=== PATIENT | male | born 1975 | race Caucasian/White ===

== ENCOUNTER 2019-11-16 01:45 | Emergency (ER) | payer SELFPAY ==
[2019-11-16 01:50] VITALS: BP 151/99; PULSE 71; RESP 18; TEMP 36.5; O2SAT 98; BMI 28.5
--- NOTE | 2019-11-16 02:00 | XR_ITS ---
WS: [id number] PORTABLE CHEST HISTORY: Chest pain. COMPARISON: 05/26/2011 Lungs are clear and well expanded. No pleural effusion or pneumothorax. Cardiac size: Normal. Mediastinum/Aorta: Normal mediastinum. No osseous abnormality seen. XR/XR chest 1V portable [id number] IMPRESSION: Unremarkable portable chest.
--- NOTE | 2019-11-16 02:00 | ECG_ITS ---
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 Measurements Intervals [place] Rate: 70 P: 51 DE: 190 QRS: 8 QRSD: 95 T: 45 QT: 386 QTc: 417 Interpretive Statements SINUS RHYTHM MINIMAL VOLTAGE CRITERIA FOR LVH, CONSIDER NORMAL VARIANT [MEETS CRITERIA IN ONE OF: R(aVL), S(V1), R(V5), R(V5/V6)+S(V1)] No previous ECG available for comparison Electronically Signed On 11-17-2019 0:13:35 CDT by Jl Singh M.D. [email or web address]/store/NU/[id number] john
[2019-11-16 02:14] VITALS: BP 144/99; PULSE 67; RESP 20; O2SAT 96
[2019-11-16 02:18] LABS: Basophils # 0.1 10^3/uL (0.0-0.1); Basophils % 0.7 %; Eosinophils # 0.3 10^3/uL (0.0-0.8); Eosinophils % 3.4 %; Hematocrit 47.7 % (42.0-52.0); Hemoglobin 16.7 g/dL (11.7-16.6); Lymphocytes # 3.5 10^3/uL (0.8-4.8); Mean Corpuscular Hemoglobin 31.7 pg (28.0-34.0); Mean Corpuscular Volume 90.5 fL (80-94); Mean Platelet Volume 9.9 fL (7.4-10.4); Monocytes # 0.7 10^3/uL (0.2-0.9); Monocytes % 6.9 %; Neutrophils # 5.42 10^3/uL (1.8-7.7); Neutrophils % 53.9 %; Nucleated Red Blood Cells % 0 %; Platelet Count 300 10^3/cmm (130-400); Red Blood Count 5.27 10^6/uL (4.1-5.3)
[2019-11-16 02:31] LABS: D Dimer <= 0.27 ug/mIFEU (0-0.59)
[2019-11-16 02:36] LABS: Troponin(5th) Baseline 6 ng/L (0-15)
[2019-11-16] MEDS: ondansetron 2 mg/ML SDV 2 mL 4 MG IVP (02:41)
--- NOTE | 2019-11-16 02:46 | ED_ITS ---
HPI - Chest Pain General: Chief Complaint: Chest Pain Stated Complaint: thinks hes having a heart attack Time Seen by Provider: 11/16/19 02:01 History of Present Illness: HPI narrative: 44-year-old male that awoke with left upper chest, left arm and left neck pressure and pain. He had some shortness of breath. It seemed to resolve on its own. He has some nausea as well, that has not resolved. He has a history of panic disorder, but this feels much different. No prior history of coronary disease etc. MD complaint: chest pain Onset (ago): hour(s) Timing of current episode: constant and now resolved Prior episodes: No Onset: during rest and awoke with symptoms Pain location: left chest Pain radiation: left arm and neck Severity: severe Quality: heaviness Relieving factors: nothing Exacerbating factors: nothing Associated symptoms: Reports abdominal pain (Cramping), dyspnea and nausea; Deny fever(s), palpitations or vomiting Review of Systems Const: Denies: fever(s) Eyes: Denies: change in vision or blurry vision ENMT: Denies: swelling of lips/tongue, post nasal drip or sinus pain Card: Denies: palpitations Resp: Reports: dyspnea GI: Reports: abdominal pain (Cramping) and nausea; Denies: vomiting : Denies: difficulty urinating, urinary frequency or hematuria Musc: Reports: neck pain; Denies: back pain Skin/Breast: Denies: rash or erythema Neuro: Denies: headache(s), dizziness, vertigo or confusion Psych: Denies: anxiety Physical Exam Const: GENERAL APPEARANCE: well developed ORIENTATION/CONSCIOUSNESS: Yes oriented to person, Yes oriented to place and Yes oriented to time HENMT: COMMON NORMALS: normocephalic, external ears normal and Normal external nose present HEAD & SCALP: normocephalic FACE & SINUS: normal facial exam NOSE: Normal external nose present and No nasal discharge present EXTERNAL EAR: Yes external ears normal Eye: COMMON NORMALS: Equal, round and reactive pupils present, EOMs intact bilaterally and conjunctivae normal EYELID: eyelids normal CONJUNCTIVA: Yes conjunctivae normal PUPIL: Yes Equal, round and reactive pupils present Neck/C-Spine: COMMON NORMALS: full ROM GENERAL: No tracheal deviation CERVICAL SPINE: Yes normal cervical lordosis and No Cervical spine tenderness Chest: COMMONS NORMALS: normal inspection of the chest CHEST: No tenderness Resp: COMMON NORMALS: clear to auscultation bilaterally EFFORT & INSPECTION: No tachypneic, No respiratory distress, No retractions, No uses accessory muscles and No tracheal deviation AUSCULTATION: clear to auscultation bilaterally, no rhonchi, no wheezes and lung sounds not diminished Cardio: COMMON NORMALS: regular rate and regular rhythm RATE: regular rate RHYTHM: regular rhythm HEART SOUNDS: no murmurs PERIPHERAL PULSES: ra dial pulses present GI: INSPECTION: No abdominal distension AUSCULTATION: No Hyperactive bowel sounds present and No Hypoactive bowel sounds present PALPATION: No Guarding due to palpation present (GI) and No Rigid due to palpation PERCUSSION: no dullness to percussion and no tympanic to percussion Neuro: SENSORIUM/ORIENTATION: Yes oriented to person, Yes oriented to place and Yes oriented to time Psych: COMMON NORMALS: mental status grossly normal Skin: COMMON NORMALS: no rashes or lesions noted GENERAL SKIN EXAM: no rashes or lesions noted Course Vital Signs: Vital signs: Vital Signs Temperature 97.7 F 11/16/19 01:50 Pulse Rate 64 11/16/19 04:00 Respiratory Rate 16 11/16/19 04:00 Blood Pressure 153/87 11/16/19 04:00 Pulse Oximetry 97 11/16/19 04:00 MDM - Chest Pain MDM Narrative: Medical decision making narrative: 44-year-old male with atypical type chest pain. Pain is essentially resolved now. He was rather anxious. This improved after some Ativan. EKG shows a sinus rhythm with essentially no acute ST changes. This is x2. Chest x-ray is negative. Troponin did not elevate at 2 hours. He will be discharged to follow-up from home. Lab Data: Labs: Lab Results 11/16/19 11/16/19 11/16/19 Range/Units 02:07 02:07 02:07 WBC 10.0 (4.0-10.0) 10^3/ uL RBC 5.27 (4.1-5.3) 10^6/u L Hgb 16.7 H (11.7-16.6) g/dL Hct 47.7 (42.0-52.0) % MCV 90.5 (80-94) fL MCH 31.7 (28.0-34.0) pg MCHC 35.0 (30.0-36.0) g/dL RDW 12.0 L (12.1-15.1) % Plt Count 300 (130-400) 10^3/c mm MPV 9.9 (7.4-10.4) fL Neut % (Auto) 53.9 % Lymph % (Auto) 35.0 % [place] % (Auto) 6.9 % Eos % (Auto) 3.4 % Baso % (Auto) 0.7 % Neut # (Auto) 5.42 (1.8-7.7) 10^3/u L Lymph # (Auto) 3.5 (0.8-4.8) 10^3/u L [place] # (Auto) 0.7 (0.2-0.9) 10^3/u L Eos # (Auto) 0.3 (0.0-0.8) 10^3/u L Baso # (Auto) 0.1 (0.0-0.1) 10^3/u L Nucleated RBC % (a uto) 0 % Nucleated RBCs # 0.0 /100WBC D-Dimer <= 0.27 (0-0.59) ug/mIFE U Sodium 140 (136-145) mmol/L Potassium 3.9 (3.5-5.1) mmol/L Chloride 101 (98-107) mmol/L Carbon Dioxide 29 (22-29) mmol/L Anion Gap 13.9 (5-19) BUN 14 (6-20) mg/dL Creatinine 1.4 H (0.7-1.2) mg/dL GFR Calculation 55.1 L (90-130) mL/min Glucose 106 (65-115) mg/dL Calculated Osmolal ity 287 (285-295) mOsm/k g Calcium 9.7 (8.5-10.5) mg/dL Total Bilirubin 0.4 (0.15-1.2) mg/dL AST 5 (0-40) U/L ALT 56 H (0-41) U/L Alkaline Phosphata se 99 (40-130) IU/L Troponin T Baselin e (0-15) ng/L Troponin T 120 Min mohegan (0-15) ng/L Delta Troponin T (0-10) ABS# NT-Pro-B Natriuret Pep 30 (0-125) pg/mL Total Protein 7.1 (6.6-8.7) g/dL Albumin 4.6 (3.5-5.2) g/dL Globulin 2.5 (1.3-4.6) g/dL 11/16/19 11/16/19 Range/Units 02:07 04:17 WBC (4.0-10.0) 10^3/ uL RBC (4.1-5.3) 10^6/u L Hgb (11.7-16.6) g/dL Hct (42.0-52.0) % MCV (80-94) fL MCH (28.0-34.0) pg MCHC (30.0-36.0) g/dL RDW (12.1-15.1) % Plt Count (130-400) 10^3/c mm MPV (7.4-10.4) fL Neut % (Auto) % Lymph % (Auto) % [place] % (Auto) % Eos % (Auto) % Baso % (Auto) % Neut # (Auto) (1.8-7.7) 10^3/u L Lymph # (Auto) (0.8-4.8) 10^3/u L [place] # (Auto) (0.2-0.9) 10^3/u L Eos # (Auto) (0.0-0.8) 10^3/u L Baso # (Auto) (0.0-0.1) 10^3/u L Nucleated RBC % (a uto) % Nucleated RBCs # /100WBC D-Dimer (0-0.59) ug/mIFE U Sodium (136-145) mmol/L Potassium (3.5-5.1) mmol/L Chloride (98-107) mmol/L Carbon Dioxide (22-29) mmol/L Anion Gap (5-19) BUN (6-20) mg/dL Creatinine (0.7-1.2) mg/dL GFR Calculation (90-130) mL/min Glucose (65-115) mg/dL Calculated Osmolal ity (285-295) mOsm/k g Calcium (8.5-10.5) mg/dL Total Bilirubin (0.15-1.2) mg/dL AST (0-40) U/L ALT (0-41) U/L Alkaline Phosphata se (40-130) IU/L Troponin T Baselin e 6 (0-15) ng/L Troponin T 120 Min mohegan 7.19 (0-15) ng/L Delta Troponin T 1.19 (0-10) ABS# NT-Pro-B Natriuret Pep (0-125) pg/mL Total Protein (6.6-8.7) g/dL Albumin (3.5-5.2) g/dL Globulin (1.3-4.6) g/dL Discharge Plan Discharge Patient Disposition: Home Clinical Impression: Chest pain Qualifiers: Chest pain type: unspecified Qualified Code(s): R07.9 - Chest pain, unspecified Condition: Stable Prescriptions: New Ativan 1 mg tablet 1 mg PO Q8H PRN (Reason: anxiety) Qty: 7 RF: 0 Discharge Orders: Discharge Order (Routine); Ordered 11/16/19 Ordered By: Chet Mata Discharge Diet: Advance as tolerated Discharge Activity: Increase activity as tolerated Patient Instructions: Chest Pain (ED) Activity Restrictions/Additional Instructions: Return for return of chest pain, shortness of breath, fever greater than 100, cough, sputum production, other concerning symptoms. See your doctor, as outpatient tests may be needed. Coding Level of Care Code ED Director Of Sustainability Programs for Zoe Fwd Exam Comprehensive
[2019-11-16 02:51] LABS: Albumin Level 4.6 g/dL (3.5-5.2); Alkaline Phosphatase 99 IU/L (40-130); Blood Urea Nitrogen 14 mg/dL (6-20); Calcium 9.7 mg/dL (8.5-10.5); Carbon Dioxide 29 mmol/L (22-29); Chloride 101 mmol/L (98-107); Globulin 2.5 g/dL (1.3-4.6); Glomerular Filtration Rate 55.1 mL/min (90-130); Glucose 106 mg/dL (65-115); NT Pro B Type Natriuretic Pept 30 pg/mL (0-125); Osmolality Calculated 287 mOsm/kg (285-295); Sodium 140 mmol/L (136-145); Total Bilirubin 0.4 mg/dL (0.15-1.2); Total Protein 7.1 g/dL (6.6-8.7)
[2019-11-16 02:57] LABS: Anion Gap 13.9 (5-19); Potassium 3.9 mmol/L (3.5-5.1)
[2019-11-16 03:00] VITALS: BP 121/85; PULSE 68; RESP 16; O2SAT 96
[2019-11-16 03:02] LABS: Alanine Aminotransferase 56 U/L (0-41); Aspartate Amino Transferase 5 U/L (0-40)
[2019-11-16] MEDS: LORazepam 2 mg/mL INJ 1 mL 1 MG IVP (03:30)
--- NOTE | 2019-11-16 03:36 | PC.NURSE ---
EKG done at 0335 and shown to ER doctor
[2019-11-16 04:00] VITALS: BP 153/87; PULSE 64; RESP 16; O2SAT 97
--- NOTE | 2019-11-16 04:00 | ECG_ITS ---
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 Measurements Intervals [place] Rate: 59 P: 40 UT: 208 QRS: 11 QRSD: 92 T: 29 QT: 376 QTc: 373 Interpretive Statements SINUS BRADYCARDIA MINIMAL VOLTAGE CRITERIA FOR LVH, CONSIDER NORMAL VARIANT [MEETS CRITERIA IN ONE OF: R(aVL), S(V1), R(V5), R(V5/V6)+S(V1)] NONSPECIFIC T-WAVE ABNORMALITY No previous ECG available for comparison Electronically Signed On 11-17-2019 0:27:14 CDT by Jl Singh M.D. [email or web address]/[id number]
[2019-11-16 04:54] LABS: Troponin 5 2HR 7.19 ng/L (0-15); Troponin 5 2HR Delta 1.19 ABS# (0-10)
[2019-11-16 05:52] VITALS: BP 112/81; PULSE 82; RESP 19; O2SAT 93
== END 2019-11-16 05:57 | disposition home or self-care (01) ==
PROVIDERS: Emergency Provider Emergency Medicine
DX: R07.9 Chest pain, unspecified (principal)
CPT/HCPCS: 12345; 71045; 80053; 83880; 84484; 85025; 85378; 93005; 96374; 96375; 99283; 99284; J2060; J2405

== ENCOUNTER 2020-08-25 14:26 | Emergency (ER) | payer OTHER, SELFPAY ==
--- NOTE | 2020-08-25 14:29 | ECG_ITS ---
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 Measurements Intervals [place] Rate: 92 P: 8 CT: 145 QRS: -11 QRSD: 101 T: 31 QT: 312 QTc: 386 Interpretive Statements SINUS RHYTHM MODERATE VOLTAGE CRITERIA FOR LVH, CONSIDER NORMAL VARIANT [MEETS CRITERIA IN ONE OF: R(aVL), S(V1), R(V5), R(V5/V6)+S(V1)] NONSPECIFIC T-WAVE ABNORMALITY Compared to ECG 11/16/2019 03:33:45 Sinus bradycardia no longer present T-wave abnormality still present Electronically Signed On 08-25-2020 16:25:54 CDT by Purvi Babin M.D. [email or web address].[employer]/store/[id number] f
--- NOTE | 2020-08-25 14:29 | XR_ITS ---
WS: [id number] Portable AP upright chest, 08/25/2020 Clinical Data: chest pain Comparison: Portable chest, 11/16/2019. Findings: No nodules, masses or effusions are seen. The heart is normal. The pulmonary vascularity is not increased. No pneumonia or pneumothorax is seen. XR/XR chest 1V portable [id number] Impression: Negative chest.
[2020-08-25 14:59] VITALS: BP 140/97; PULSE 90; RESP 16; TEMP 36.3; O2SAT 98; BMI 29.5
--- NOTE | 2020-08-25 16:29 | ECG_ITS ---
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 Measurements Intervals [place] Rate: 70 P: 44 MN: 199 QRS: 3 QRSD: 102 T: 30 QT: 372 QTc: 402 Interpretive Statements SINUS RHYTHM MODERATE VOLTAGE CRITERIA FOR LVH, CONSIDER NORMAL VARIANT [MEETS CRITERIA IN ONE OF: R(aVL), S(V1), R(V5), R(V5/V6)+S(V1)] Compared to ECG 08/25/2020 15:08:56 T-wave abnormality no longer present Electronically Signed On 08-25-2020 22:08:34 CDT by Purvi Babin M.D. [email or web address].EcoSwarmyalobusha general hospitalSMTDP Technologyfirelands [facility].[employer]/store/OM/[id number]/[id number]
--- NOTE | 2020-08-25 16:46 | ED_ITS ---
HPI - Chest Pain General: Chief Complaint: Chest Pain Stated Complaint: chest pain Time Seen by Provider: 08/25/20 16:27 History of Present Illness: HPI narrative: 45-year-old male presents emergency room complaining of epigastric pain radiating up into his chest. Began today after he ate a hamburger at lunchtime he broke out into a sweat. He has been having intermittent episodes for the last month. He seen his PCP several times he put him on something for his stomach. He states this is the worst episodes he has had. He is not had any further work-up. He denies hematochezia melena hematemesis or coffee-ground emesis. MD complaint: chest pain Onset (ago): week(s) Timing of current episode: episodic Prior episodes: Yes Onset: after eating Pain location: right chest and epigastric Pain radiation: back Severity: moderate Quality: aching and heaviness Relieving factors: nothing Exacerbating factors: eating Associated symptoms: Reports nausea and vomiting; Deny abdominal pain, diaphoresis, dyspnea, fever(s), leg edema, palpitations, sense of impending doom or syncope Treatment prior to arrival: none Review of Systems Const: Denies: fever(s) or diaphoresis ENMT: Denies: throat pain, ear or mastoid pain, nasal discharge or nasal congestion Card: Denies: palpitations or syncope Resp: Denies: dyspnea GI: Reports: nausea and vomiting; Denies: abdominal pain : Denies: flank pain, dysuria, urinary frequency or urinary urgency Skin/Breast: Denies: rash or pruritus Physical Exam Const: COMMON NORMALS: no acute distress GENERAL APPEARANCE: cooperative and comfortable ORIENTATION/CONSCIOUSNESS: Yes awake, Yes oriented to person, Yes oriented to place and Yes oriented to time HENMT: COMMON NORMALS: normocephalic, atraumatic, hearing grossly normal bilaterally and external ears normal HEAD & SCALP: normocephalic and atraumatic EXTERNAL EAR: Yes external ears normal Neck/C-Spine: COMMON NORMALS: no JVD Resp: COMMON NORMALS: normal respiratory effort, No retractions, No use of accessory muscles and clear to auscultation bilaterally AUSCULTATION: clear to auscultation bilaterally Cardio: COMMON NORMALS: no JVD, regular rate, regular rhythm and No murmurs present (Cardio) RATE: regular rate RHYTHM: regular rhythm GI: COMMON NORMALS: Soft to palpation and No hepatosplenomegaly present AUSCULTATION: Yes normoactive bowel sounds PALPATION: Yes Soft to palpation, No Tenderness to palpation present (GI), No Guarding due to palpation present (GI) and Yes No hepatosplenomegaly present Extremity: COMMON NORMALS: normal to inspection, capillary refill normal, no clubbing, cyanosis or edema, no calf tenderness and no pedal edema Neuro: SENSORIUM/ORIENTATION: Yes oriented to person, Yes oriented to place and Yes oriented to time Skin: COMMON NORMALS: no rashes or lesions noted GENERAL SKIN EXAM: no rashes or lesions noted Course Vital Signs: Vital signs: Vital Signs Temperature 97.3 F L 08/25/20 14:59 Pulse Rate 73 08/25/20 18:20 Respiratory Rate 20 H 08/25/20 18:20 Blood Pressure 127/87 08/25/20 18:20 Pulse Oximetry 97 08/25/20 18:20 MDM - Chest Pain MDM Narrative: Medical decision making narrative: Cardiac enzymes negative liver function negative. Patient has had this ongoing for multiple weeks related to when he eats. Based on his history and labs ordered as well as exam there is no evidence of acute cholecystitis at this time. We will start him on Protonix he should also have an abdominal ultrasound as an outpatient may need to have an EGD. We will discharge him home encourage a low-fat diet. Lab Data: Labs: Lab Results 08/25/20 08/25/20 08/25/20 Range/Units 16:43 16:43 16:43 WBC 12.1 H (4.0-10.0) 10^3/ uL RBC 5.02 (4.1-5.3) 10^6/u L Hgb 16.1 (11.7-16.6) g/dL Hct 44.8 (42.0-52.0) % MCV 89.2 (80-94) fL MCH 32.1 (28.0-34.0) pg MCHC 35.9 (30.0-36.0) g/dL RDW 11.9 L (12.1-15.1) % Plt Count 244 (130-400) 10^3/c mm MPV 9.7 (7.4-10.4) fL Neut % (Auto) 81.4 % Lymph % (Auto) 10.0 % [place] % (Auto) 5.3 % Eos % (Auto) 2.7 % Baso % (Auto) 0.4 % Neut # (Auto) 9.86 H (1.8-7.7) 10^3/u L Lymph # (Auto) 1.2 (0.8-4.8) 10^3/u L [place] # (Auto) 0.6 (0.2-0.9) 10^3/u L Eos # (Auto) 0.3 (0.0-0.8) 10^3/u L Baso # (Auto) 0.1 (0.0-0.1) 10^3/u L Nucleated RBC % (a uto) 0 % Nucleated RBCs # 0.0 /100WBC Sodium 138 (136-145) mmol/L Potassium 3.9 (3.5-5.1) mmol/L Chloride 100 (98-107) mmol/L Carbon Dioxide 28 (22-29) mmol/L Anion Gap 13.9 (5-19) BUN 13 (6-20) mg/dL Creatinine 0.9 (0.7-1.2) mg/dL GFR Calculation 91.3 (90-130) mL/min Glucose 85 (65-115) mg/dL Calculated Osmolal ity 285 (285-295) mOsm/k g Calcium 9.1 (8.5-10.5) mg/dL Total Bilirubin 0.4 (0.15-1.2) mg/dL AST 17 (0-40) U/L ALT 28 (0-41) U/L Alkaline Phosphata se 90 (40-130) IU/L Troponin T Baselin e 6 (0-15) ng/L Total Protein 6.6 (6.6-8.7) g/dL Albumin 4.5 (3.5-5.2) g/dL Globulin 2.1 (1.3-4.6) g/dL Lipase (13-60) U/L 08/25/20 Range/Units 16:43 WBC (4.0-10.0) 10^3/ uL RBC (4.1-5.3) 10^6/u L Hgb (11.7-16.6) g/dL Hct (42.0-52.0) % MCV (80-94) fL MCH (28.0-34.0) pg MCHC (30.0-36.0) g/dL RDW (12.1-15.1) % Plt Count (130-400) 10^3/c mm MPV (7.4-10.4) fL Neut % (Auto) % Lymph % (Auto) % [place] % (Auto) % Eos % (Auto) % Baso % (Auto) % Neut # (Auto) (1.8-7.7) 10^3/u L Lymph # (Auto) (0.8-4.8) 10^3/u L [place] # (Auto) (0.2-0.9) 10^3/u L Eos # (Auto) (0.0-0.8) 10^3/u L Baso # (Auto) (0.0-0.1) 10^3/u L Nucleated RBC % (a uto) % Nucleated RBCs # /100WBC Sodium (136-145) mmol/L Potassium (3.5-5.1) mmol/L Chloride (98-107) mmol/L Carbon Dioxide (22-29) mmol/L Anion Gap (5-19) BUN (6-20) mg/dL Creatinine (0.7-1.2) mg/dL GFR Calculation (90-130) mL/min Glucose (65-115) mg/dL Calculated Osmolal ity (285-295) mOsm/k g Calcium (8.5-10.5) mg/dL Total Bilirubin (0.15-1.2) mg/dL AST (0-40) U/L ALT (0-41) U/L Alkaline Phosphata se (40-130) IU/L Troponin T Baselin e (0-15) ng/L Total Protein (6.6-8.7) g/dL Albumin (3.5-5.2) g/dL Globulin (1.3-4.6) g/dL Lipase 27 (13-60) U/L Discharge Plan Discharge Patient Disposition: Home Clinical Impression: Chest pain due to GERD Condition: Stable Prescriptions: New Protonix 40 mg tablet,delayed release (DR/EC) 40 mg PO DAILY 56 Days RF: 0 Discharge Orders: Discharge ED (Routine); Ordered 08/25/20 Ordered By: Ramírez Garrett Referrals: Roby Kurtz, [Primary Care Provider] - Discharge Diet: Usual diet Discharge Activity: Increase activity as tolerated Patient Instructions: Opioid Safety Activity Restrictions/Additional Instructions: Case management will call to set up an EGD with the surgeon as well as a abdominal ultrasound. Coding Level of Care Code ED Music Typographer for Chg Fwd Exam Comprehensive
[2020-08-25 16:53] LABS: Basophils # 0.1 10^3/uL (0.0-0.1); Basophils % 0.4 %; Eosinophils # 0.3 10^3/uL (0.0-0.8); Eosinophils % 2.7 %; Hematocrit 44.8 % (42.0-52.0); Hemoglobin 16.1 g/dL (11.7-16.6); Lymphocytes # 1.2 10^3/uL (0.8-4.8); Mean Corpuscular HGB Conc 35.9 g/dL (30.0-36.0); Mean Corpuscular Hemoglobin 32.1 pg (28.0-34.0); Mean Corpuscular Volume 89.2 fL (80-94); Mean Platelet Volume 9.7 fL (7.4-10.4); Monocytes # 0.6 10^3/uL (0.2-0.9); Monocytes % 5.3 %; Neutrophils # 9.86 10^3/uL (1.8-7.7); Neutrophils % 81.4 %; Nucleated Red Blood Cells % 0 %; Platelet Count 244 10^3/cmm (130-400); Red Blood Count 5.02 10^6/uL (4.1-5.3); Red Cell Distribution Width 11.9 % (12.1-15.1); White Blood Count 12.1 10^3/uL (4.0-10.0)
[2020-08-25 17:07] VITALS: BP 132/84; PULSE 79; RESP 20; O2SAT 99
[2020-08-25 17:11] LABS: Troponin(5th) Baseline 6 ng/L (0-15)
[2020-08-25 17:55] LABS: Lipase 27 U/L (13-60)
[2020-08-25 17:56] LABS: Alanine Aminotransferase 28 U/L (0-41); Albumin Level 4.5 g/dL (3.5-5.2); Alkaline Phosphatase 90 IU/L (40-130); Anion Gap 13.9 (5-19); Aspartate Amino Transferase 17 U/L (0-40); Blood Urea Nitrogen 13 mg/dL (6-20); Calcium 9.1 mg/dL (8.5-10.5); Carbon Dioxide 28 mmol/L (22-29); Chloride 100 mmol/L (98-107); Globulin 2.1 g/dL (1.3-4.6); Glomerular Filtration Rate 91.3 mL/min (90-130); Glucose 85 mg/dL (65-115); Osmolality Calculated 285 mOsm/kg (285-295); Potassium 3.9 mmol/L (3.5-5.1); Sodium 138 mmol/L (136-145); Total Bilirubin 0.4 mg/dL (0.15-1.2); Total Protein 6.6 g/dL (6.6-8.7)
[2020-08-25 18:20] VITALS: BP 127/87; PULSE 73; RESP 20; O2SAT 97
--- NOTE | 2020-08-27 09:31 | DCPLANNER ---
Addendum entered by Bharati Dow 08/31/20 11:41: Patient has an abdominal ultrasound scheduled for Thursday, October 08, 2020 at 8:00. Centralized scheduling will call patient with appointment information. For the EGD that physician wanted patient to have, family caseworker referred patient to [facility] General Surgery. manager spring emailed Luiz at [facility] General Surgery. Patients information will be printed and reviewed. Clinic will call patient with appointment information. Original Note: manager spring had message to schedule an outpatient EGD and ultrasound on patient. manager spring faxed signed orders to centralized scheduling. manager spring will call for appointment information.
--- NOTE | 2020-09-24 07:47 | DCPLANNER ---
Patient has a follow up appointment scheduled for , October 14, [address] Mckeon at [facility] General Surgery. Clinic will call patient with appointment information.
--- NOTE | 2020-11-05 12:23 | DCPLANNER ---
Patient had an appointment scheduled for 10.08.20 for an ultrasound - appointment was rescheduled. Patient had an appointment scheduled with general surgery - appointment was cancelled.
== END 2020-08-25 18:20 | disposition home or self-care (01) ==
PROVIDERS: Physician Assistant; Emergency Provider Family Medicine; PCP Electrodiagnostic Medicine
DX: K21.9 Gastro-esophageal reflux disease without esophagitis (principal)
CPT/HCPCS: 71045; 80053; 83690; 84484; 85025; 93005; 99283

== ENCOUNTER 2020-11-13 08:03 | Emergency (ER) | payer OTHER, SELFPAY ==
--- NOTE | 2020-11-13 08:11 | ECG_ITS ---
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 Measurements Intervals [place] Rate: 62 P: 34 [place]: 213 QRS: -2 QRSD: 117 T: 17 QT: 376 QTc: 383 Interpretive Statements SINUS RHYTHM WITH FIRST DEGREE AV BLOCK MODERATE INTRAVENTRICULAR CONDUCTION DELAY [110+ ms QRS DURATION] VOLTAGE CRITERIA FOR LVH [MEETS CRITERIA IN ONE OF: R(aVL), S(V1), R(V5), R(V5/V6)+S(V1)] NONSPECIFIC T-WAVE ABNORMALITY INTERPRETATION BASED ON A DEFAULT AGE OF 40 YEARS Compared to ECG 08/25/2020 17:03:38 First degree AV block now present Intraventricular conduction delay now present T-wave abnormality now present Electronically Signed On 11-13-2020 22:03:39 CDT by Darnell Booker M.D. [email or web address].[email or web address].[employer]/store/[id number] john
[2020-11-13 08:35] VITALS: BP 147/98; PULSE 57; RESP 18; TEMP 36.5; O2SAT 96; BMI 29.8
== END 2020-11-13 09:44 | disposition left against medical advice (07) ==
PROVIDERS: Emergency Provider Family Medicine; PCP Electrodiagnostic Medicine
DX: R07.9 Chest pain, unspecified (principal); R00.1 Bradycardia, unspecified; Z53.21 Procedure and treatment not carried out due to patient leaving prior to being seen by health care provider
CPT/HCPCS: 93005

== ENCOUNTER → 2020-12-29 11:39 | Outpatient (BNVA) | payer OTHER, SELFPAY | PROVIDERS: PCP Electrodiagnostic Medicine; Visit Provider Family Medicine | DX: Z01.812 Encounter for preprocedural laboratory examination (principal); Z20.822 Contact with and (suspected) exposure to COVID-19 | CPT/HCPCS: 87635 ==

== ENCOUNTER 2021-01-04 07:05 | Outpatient (CLI) | payer OTHER, SELFPAY ==
--- NOTE | 2021-01-04 10:57 | PFTS_ITS ---
Date of Study:01/04/21 Date of Dictation: MECHANICS: Forced vital capacity (FVC) is reduced. Forced expiratory volume in one second (FEV1) is normal. FEV1/FVC is normal. FLOW VOLUME LOOP: Normal. LUNG VOLUMES: Total lung capacity (TLC) is reduced. Residual volume (RV) is normal. DIFFUSING CAPACITY FOR CARBON MONOXIDE: Normal. INTERPRETATION: The postbronchodilator spirometry is consistent with mild restriction. There is no significant postbronchodilator response. The lung volumes are consistent with mild restriction. Gas exchange (DLCO) is normal. MTDD
== END 2021-01-04 07:06 | disposition home or self-care (01) ==
LOC: RT 07:07
PROVIDERS: PCP Electrodiagnostic Medicine; Visit Provider Family Medicine
DX: J98.01 Acute bronchospasm (principal)
CPT/HCPCS: 94060; 94726; 94729; J7611

== ENCOUNTER 2021-10-12 15:03 | Outpatient (CLI) | payer OTHER, SELFPAY ==
--- NOTE | 2021-10-12 15:00 | USCV_ITS ---
Martinez Burgos Age: 46 Gender: M : 1975 Exam Date: 10/12/2021 15:28 Ordering Phys: Darnell Booker M.D ([email or web address]) Technologist: LEONIE Exam Location: [facility] Indication: CHEST PAIN BP: 130 / 98 HR: 69 Rhythm: Sinus Technical Quality: Adequate MEASUREMENTS (Male / Female) Normal Values 2D ECHO LV Diastolic Diameter PLAX 5.5 cm 4.2 - 5.9 / 3.9 - 5.3 cm LV Systolic Diameter PLAX 3.6 cm IVS Diastolic Thickness 1.3 cm 0.6 - 1.0 / 0.6 - 0.9 cm IVS Systolic Thickness 1.9 cm LVPW Diastolic Thickness 1.1 cm 0.6 - 1.0 / 0.6 - 0.9 cm LVPW Systolic Thickness 1.4 cm LVOT Diameter 2.0 cm LV Ejection Fraction 2D Teich 63.8 % LV Ejection Fraction MOD 2C 54.0 % LV Ejection Fraction 2C AL 53.7 % LA Diameter 3.7 cm LA Width 3.6 cm LA Height 4.9 cm RA Width 3.9 cm RA Height 4.8 cm Aorta at Sinotubular Diameter 3.3 cm IVC Diameter 1.8 cm M-MODE Aortic Annulus Diameter 2.9 cm LA Ao Ratio MM 1.3 MV E Point Septal Separation 0.7 cm DOPPLER AV Peak Velocity 134.7 cm/s LVOT Peak Velocity 87.0 cm/s AV Area Cont Eq vti 2.2 cm squared AV Area Cont Eq pk 2.1 cm squared MV Peak Velocity 80.0 cm/s MV Area PHT 4.2 cm squared Mitral E to A Ratio 1.1 MV E' Velocity 47.0 cm/s Mitral E to MV E' Ratio 7.0 Mitral E to LV E' Lateral Ratio 6.0 Mitral E to LV E' Septal Ratio 8.3 TR Peak Velocity 207.4 cm/s TR Peak Gradient 17.2 mmHg TR Mean Velocity 215.6 cm/s TR Mean Gradient 19.5 mmHg TR Velocity Time Integral 71.0 cm Right Atrial Pressure 3.0 mmHg Pulmonary Artery Systolic Pressu 20.2 mmHg PV Peak Velocity 123.0 cm/s RV Acceleration Time 0.1 s RV Ejection Time 0.3 s RV AcT/ET 0.4 FINDINGS Left Ventricle Normal left ventricular size. LV systolic function is normal with EF of 55-60%. No regional wall motion abnormalities. Right Ventricle The right ventricle is normal in size and function. Right Atrium The right atrium is normal in size. Left Atrium The left atrium is normal in size. Mitral Valve Structurally normal mitral valve without significant stenosis or prolapse. There is trace mitral regurgitation. Aortic Valve Structurally normal aortic valve without significant sclerosis or stenosis. There is no aortic regurgitation. Tricuspid Valve Trace tricuspid regurgitation. Insufficient TR jet to calculate RVSP. Pulmonic Valve Trace pulmonic regurgitation Pericardium Normal pericardium without effusion. Aorta Normal ascending aorta dimension. IVC CONCLUSIONS LV systolic function is normal with EF of 55 to 60%. Trace mitral regurgitation. Trace tricuspid regurgitation. Trace pulmonic regurgitation. No comparison studies are available. Darnell Booker MD (Electronically Signed) Final Date: 25 October 2021 18:17 S
== END 2021-10-12 15:04 | disposition home or self-care (01) ==
LOC: RAD 15:04
PROVIDERS: PCP Electrodiagnostic Medicine; Visit Provider Internal Medicine
DX: I08.3 Combined rheumatic disorders of mitral, aortic and tricuspid valves (principal); R07.9 Chest pain, unspecified
CPT/HCPCS: 93306

== ENCOUNTER 2022-06-12 11:43 | Outpatient (CLI) | payer OTHER, SELFPAY ==
[2022-06-12 12:21] VITALS: BMI 29.8
--- NOTE | 2022-06-12 12:31 | ECG_ITS ---
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 Interpretive Statements NAME OF STUDY: TREADMILL STRESS TEST INDICATION: [Chest Pain, ] EXERCISE DATA: The patient was exercised by [employer] protocol. Baseline heart rate was 71 beats per minute. Baseline blood pressure cmh513/104 millimeters of mercury. Target heart rate was 147 beats per minute. Maximum heart rate achieved was 153 which was 103% of the target heart rate. Maximum blood pressure was 209/82 millimeters of mercury. Total exercise time was 9 minutes and 18 seconds. Maximum METs achieved was 13.5. The reason for ending the test was completion of the protocol. The patient complained of shortness of breath during the stress test, which then resolved at the end of the test. ELECTROCARDIOGRAM: BASELINE: Showed sinus rhythm, normal axis, no significant ST-T changes at the baseline noted. [] EXERCISE: At the peak exercise level, [] No significant ST-T changes suggestive of ischemia noted. [] RECOVERY: During the recovery period, heart rate dropped appropriately. No significant ST-T changes in the recovery suggestive of ischemia noted. [] CONCLUSION: 1. Exercise capacity excellent 2. Heart rate response was appropriate. 3. Blood pressure response was appropriate 4. Symptoms not suggestive of ischemia. 5. Stress test is negative for ischemia Electronically Signed On 06-25-2022 15:31:26 CDT by Darnell Booker M.D. [email or web address]
[2022-06-12 13:06] VITALS: BP 147/94; PULSE 94
== END 2022-06-12 11:44 | disposition home or self-care (01) ==
PROVIDERS: PCP Electrodiagnostic Medicine; Visit Provider Internal Medicine
DX: R07.9 Chest pain, unspecified (principal)
CPT/HCPCS: 93017

== ENCOUNTER 2023-07-28 08:05 | Emergency (ER) | payer OTHER, SELFPAY ==
[2023-07-28] VITALS (7 sets, daily range): BP systolic 135–152; BP diastolic 86–94; PULSE 64–77; RESP 16–18; TEMP 36.8; O2SAT 94–99
--- NOTE | 2023-07-28 08:07 | XRR_ITS ---
PROCEDURE INFORMATION: Exam: XR Chest Exam date and time: 07/28/2023 8:21 AM Age: 48 years old Clinical indication: Pain; Chest pressure; Additional info: Cp TECHNIQUE: Imaging protocol: Radiologic exam of the chest. Views: 1 view. COMPARISON: CR XR chest 1V portable [id number] 08/25/2020 2:44 PM FINDINGS: Lungs: New subtle infiltrates in both lung bases. Lower lung volumes. Otherwise, unremarkable. Pleural spaces: Unremarkable. No pleural effusion. No pneumothorax. Heart/Mediastinum: Unremarkable. No cardiomegaly. Bones/joints: Unremarkable. XR/XR chest 1V portable [id number] IMPRESSION: New subtle infiltrates in both lung bases with lower lung volumes.
--- NOTE | 2023-07-28 08:09 | ECG_ITS ---
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 Measurements Intervals [place] Rate: 60 P: 47 MN: 199 QRS: 2 QRSD: 109 T: -9 QT: 384 QTc: 386 Interpretive Statements SINUS RHYTHM VOLTAGE CRITERIA FOR LVH [MEETS CRITERIA IN ONE OF: R(aVL), S(V1), R(V5), R(V5/V6)+S(V1)] NONSPECIFIC T-WAVE ABNORMALITY Compared to ECG 11/13/2020 08:44:03 First degree AV block no longer present Intraventricular conduction delay no longer present T-wave abnormality still present Electronically Signed On 07-28-2023 19:53:31 CDT by Jl Singh M.D. [id number]
--- NOTE | 2023-07-28 08:15 | ED_ITS ---
HPI - Chest Pain 2 General: Chief Complaint: Chest Pain Stated Complaint: chest pain, sob Time Seen by Provider: 07/28/23 08:09 Source: patient Mode of arrival: ambulatory Limitations: no limitations History of Present Illness: This patient presents to the emergency department because of chest pressure and discomfort it has been present since approximately 2 AM today. He states it feels like pressure in the center of his chest without radiation. No exacerbating or relieving factors. He states he has had panic attacks in the past but this does not feel like those symptoms. States he has no known cardiovascular disease. He does not smoke tobacco. He does have family history of cardiovascular disease but not until old age. He states his 78-year-old father suffered an [place] just recently. He states he ate normally last evening and then drank a few whiskeys, more than usual. He states he felt fine when he went to bed. He states he is urinated and drank fluids this morning without difficulty swallowing. He has had heartburn symptoms in the past on occasion but this does not feel like that either. No recent illness. No cough trauma etc. MD complaint: chest pain Onset: during rest Pain location: substernal Pain radiation: none Quality: heaviness and dull Associated symptoms: Deny abdominal pain, fever(s), nausea, palpitations, syncope or vomiting Risk Factors: Thoracic aortic dissection risk factors: none Review of Systems 2 Const: Denies: fever(s) or chills Eyes: Denies: change in vision ENMT: Denies: throat pain, odynophagia, nasal discharge or nasal congestion Card: Reports: chest pain; Denies: palpitations, irregular heart rhythm, syncope or pre-syncope Resp: Denies: productive cough or non-productive cough GI: Denies: abdominal pain, nausea, vomiting or hematemesis : Denies: flank pain, difficulty urinating, dysuria or urinary frequency Musc: Denies: neck pain, back pain, extremity pain or extremity swelling Skin/Breast: Denies: rash Neuro: Denies: headache(s), numbness in extremities or weakness in extremities Milo/Lymph: Denies: easy bruising PFSH ED 2 PFSH: Family History Grandfather S/P triple vessel bypass Father Hypertension Social History (Reviewed 07/28/23 @ 08:19 by PETER Angel Smoking and tobacco/nicotine status: never used tobacco/nicotine Physical Exam 2 Narrative: EXAM NARRATIVE: He appears to be in no acute distress makes eye contact and answers questions in a goal-directed fashion. Const: COMMON NORMALS: no acute distress, average body habitus, patient oriented x3, healthy appearing and alert GENERAL APPEARANCE: cooperative and comfortable HENMT: COMMON NORMALS: normocephalic, Normal nasal mucous membranes and turbinates present, moist oral mucous membranes and oropharynx normal HEAD & SCALP: normocephalic NOSE: Normal nasal mucous membranes and turbinates present Eye: COMMON NORMALS: Equal, round and reactive pupils present, EOMs intact bilaterally and conjunctivae normal CONJUNCTIVA: Yes conjunctivae normal P UPIL: Yes Equal, round and reactive pupils present Neck/C-Spine: COMMON NORMALS: full ROM, no lymphadenopathy, supple, no JVD and No carotid bruits Chest: COMMONS NORMALS: normal inspection of the chest and normal palpation of entire chest wall Resp: COMMON NORMALS: normal respiratory effort, No retractions, No use of accessory muscles and clear to auscultation bilaterally AUSCULTATION: clear to auscultation bilaterally Cardio: COMMON NORMALS: no JVD, regular rate, regular rhythm, No murmurs present (Cardio) and Peripheral pulses 2+ throughout RATE: regular rate R HYTHM: regular rhythm PERIPHERAL PULSES: Peripheral pulses 2+ throughout GI: COMMON NORMALS: Normal to inspection, nondistended, normoactive bowel sounds present, Soft to palpation and non-tender PALPATION: Yes Soft to palpation : COMMON NORMALS: Yes no CVA tenderness BLADDER/KIDNEY EXAM: Yes no CVA tenderness Back/Pelvis: COMMON NORMALS: no CVA tenderness, thoracic and lumbar spine normal to inspection, no thoracic nor lumbar tenderness and thoraco-lumbar ROM normal Extremity: COMMON NORMALS: normal to inspection, full ROM, capillary refill normal, no calf tenderness and no pedal edema Neuro: COMMON NORMALS: patient oriented x3, moves all extremities, no focal motor deficits and no sensory deficits noted SENSORIUM/ORIENTATION: Yes alert CRANIAL NERVES: Yes CN normal except as noted Psych: COMMON NORMALS: mental status grossly normal Skin: COMMON NORMALS: no rashes or lesions noted, no wounds and turgor normal GENERAL SKIN EXAM: no rashes or lesions noted and turgor normal Course 2 Reevaluation(s): Reevaluation #1: Patient is pain-free and comfortable. Vital signs are normal and no significant findings on workup. Discussed current findings there are implications of both he and his spouse who is now present. No evidence at this time of an ongoing emergency medical condition and certainly suitable to be discharged with outpatient follow-up. He voiced understanding and was appreciative of care. Time: 10:59 Vital Signs: Vital signs: Vital Signs Temperature 98.3 F 07/28/23 08:09 Pulse Rate 64 07/28/23 10:30 Respiratory Rate 17 07/28/23 09:30 Blood Pressure 148/94 07/28/23 10:30 Pulse Oximetry 98 07/28/23 10:30 Oxygen Delivery Me thod Room Air 07/28/23 09:13 MDM - Chest Pain Medical Decision Making Gentleman with no known cardiovascular disease history presented to the emergency department with onset of chest heaviness that began approximately 2 AM after a large meal and several whiskeys prior to going to bed. Patient's symptoms did not radiate and were not associated with any other findings. He has had mild esophageal reflux disease in the past but nothing to this extent. No fevers chills cough or other associated symptoms. Clinical examination was unremarkable. He has serial biomarkers and serial EKGs essentially made him extremely low risk for ACS. No risk of thromboembolic disease and very low risk of other significant pathology. There was some suggestion of possible infiltrative process in the lower lungs of on his chest x-ray but to my review they do not appear to be concerning and is not any associated clinical symptoms such as fever cough etc. which would suggest such. This was shared with the patient and spouse and follow-up encouraged should he develop any of those symptoms. At this point I recommend that he take an H2 amina for the next 5 to 7 days such as Pepcid AC and follow-up with his regular doctor for any ongoing care. We also discussed return precautions. Lab Data I reviewed the patient's lab results. 07/28/23 08:12 07/28/23 08:12 Radiology Impressions Chest X-Ray 07/28/23 08:07 IMPRESSION: New subtle infiltrates in both lung bases with lower lung volumes. Laboratory Results WBC 7.54 10^3/uL (3.29-11.43) 07/28/23 08:12 RBC 5.24 10^6/uL (3.85-5.65) 07/28/23 08:12 Hgb 16.70 g/dL (11.27-16.99) 07/28/23 08:12 Hct 47.2 % (37-53) 07/28/23 08:12 MCV 90.1 fl (82-101) 07/28/23 08:12 MCH 31.9 pg (27-33) 07/28/23 08:12 MCHC 35.4 g/dL (30-55) 07/28/23 08:12 RDW 12.2 % (12.1-15.1) 07/28/23 08:12 Plt Count 260 10^3/cmm (157-399) 07/28/23 08:12 MPV 9.7 fL (7.4-10.4) 07/28/23 08:12 Neut % (Auto) 57.3 % 07/28/23 08:12 Lymph % (Auto) 29.7 % 07/28/23 08:12 Daniels % (Auto) 8.4 % 07/28/23 08:12 Eos % (Auto) 3.4 % 07/28/23 08:12 Baso % (Auto) 0.9 % 07/28/23 08:12 Neut # (Auto) 4.32 10^3/uL (1.8-7.7) 07/28/23 08:12 Lymph # (Auto) 2.2 10^3/uL (0.8-4.8) 07/28/23 08:12 Daniels # (Auto) 0.6 10^3/uL (0.2-0.9) 07/28/23 08:12 Eos # (Auto) 0.3 10^3/uL (0.0-0.8) 07/28/23 08:12 Baso # (Auto) 0.1 10^3/uL (0.0-0.1) 07/28/23 08:12 Nucleated RBC % (auto) 0 % 07/28/23 08:12 Nucleated RBCs # 0.0 /100WBC 07/28/23 08:12 Sodium 136 mmol/L (136-145) 07/28/23 08:12 Potassium 4.3 mmol/L (3.5-5.1) 07/28/23 08:12 Chloride 100 mmol/L (98-107) 07/28/23 08:12 Carbon Dioxide 27 mmol/L (22-29) 07/28/23 08:12 Anion Gap 13.3 (5-19) 07/28/23 08:12 BUN 12 mg/dL (6-20) 07/28/23 08:12 Creatinine 1.0 mg/dL (0.7-1.2) 07/28/23 08:12 GFR Calculation 79.8 mL/min (90-130) L 07/28/23 08:12 Glucose 112 mg/dL (65-115) 07/28/23 08:12 Calculated Osmolality 283 mOsm/kg (285-295) L 07/28/23 08:12 Calcium 9.2 mg/dL (8.5-10.5) 07/28/23 08:12 Troponin T Baseline < 6 ng/L (0-15) 07/28/23 08:12 Troponin T 120 Minute 6.00 ng/L (0-15) 07/28/23 10:00 Delta Troponin T 0.97592 ABS# (0-10) 07/28/23 10:00 NT-Pro-B Natriuret Pep < 36 pg/mL (0-125) 07/28/23 08:12 All radiology interpretation(s) finalized by discharge EKG Data EKG 1: I personally reviewed and interpreted this EKG as follows: Interpretation: Initial EKG this visit reveals a ventricular rate of 60 bpm. Normal ID interval, QRS duration, corrected QT interval. Normal axis. Nonspecific ST-T wave changes noted in 3 and aVF as well as some nonspecific ST flattening in V45 and 6-appears to be slightly changed from prior tracings. Discharge Plan Discharge Patient Disposition: Home Clinical Impression: Chest pain Qualifiers: Chest pain type: unspecified Qualified Code(s): R07.9 - Chest pain, unspecified Condition: Stable Prescriptions: No Action alprazolam [Xanax] 0.5 mg tablet 0.5 mg PO DAILY PRN (Reason: Anxiety) cetirizine [Zyrtec] 10 mg tablet 10 mg PO DAILY PRN (Reason: Allergy Symptoms) albuterol sulfate [ProAir HFA] 90 mcg/actuation HFA aerosol inhaler 1 puff inhalation QID PRN (Reason: Shortness Of Breath Or Wheezing) pantoprazole 20 mg tablet,delayed release (DR/EC) 20 mg PO DAILY PRN (Reason: Acid Reflux) atorvastatin 40 mg tablet 40 mg PO QPM Discharge Orders: Discharge ED (Routine); Ordered 07/28/23 Ordered By: Nishant Lopez Referrals: Roby Kurtz DO [Primary Care Provider] - Discharge Diet: Usual diet Discharge Activity: Increase activity as tolerated Patient Instructions: Opioid Safety, Pain Management Activity Restrictions/Additional Instructions: As we discussed in the emergency department today your test did not show any evidence of a heart attack or other potential serious conditions at the time of your evaluation. We recommend that you take [id number] Pepcid AC 1 pill twice daily for the next 5 to 7 days. If you develop any exertional chest pain or difficulty breathing fevers chills or any other concerning symptoms you are welcome to return to the emergency department at any time. Coding Level of Care Code ED [employer] for [employer]oe [employer]
[2023-07-28 08:17] LABS: Basophils # 0.1 10^3/uL (0.0-0.1); Basophils % 0.9 %; Eosinophils # 0.3 10^3/uL (0.0-0.8); Eosinophils % 3.4 %; Hematocrit 47.2 % (37-53); Lymphocytes # 2.2 10^3/uL (0.8-4.8); Lymphocytes % 29.7 %; Mean Corpuscular HGB Conc 35.4 g/dL (30-55); Mean Corpuscular Hemoglobin 31.9 pg (27-33); Mean Corpuscular Volume 90.1 fl (82-101); Mean Platelet Volume 9.7 fL (7.4-10.4); Monocytes # 0.6 10^3/uL (0.2-0.9); Monocytes % 8.4 %; Neutrophils # 4.32 10^3/uL (1.8-7.7); Neutrophils % 57.3 %; Nucleated Red Blood Cells % 0 %; Platelet Count 260 10^3/cmm (157-399); Red Blood Count 5.24 10^6/uL (3.85-5.65); Red Cell Distribution Width 12.2 % (12.1-15.1); White Blood Count 7.54 10^3/uL (3.29-11.43)
[2023-07-28] MEDS: aspirin 81 mg Chew Tablet 324 MG PO (08:25)
[2023-07-28] MEDS: famotidine 20 mg/2 mL INJ 40 MG IVP (08:27)
[2023-07-28 08:38] LABS: Troponin(5th) Baseline < 6 ng/L (0-15)
[2023-07-28 08:43] LABS: Blood Urea Nitrogen 12 mg/dL (6-20); Calcium 9.2 mg/dL (8.5-10.5); Carbon Dioxide 27 mmol/L (22-29); Chloride 100 mmol/L (98-107); Glomerular Filtration Rate 79.8 mL/min (90-130); Glucose 112 mg/dL (65-115); NT Pro B Type Natriuretic Pept < 36 pg/mL (0-125); Osmolality Calculated 283 mOsm/kg (285-295); Sodium 136 mmol/L (136-145)
[2023-07-28 08:57] LABS: Anion Gap 13.3 (5-19); Potassium 4.3 mmol/L (3.5-5.1)
[2023-07-28 10:21] LABS: Troponin 5 2HR Delta 0.00001 ABS# (0-10)
== END 2023-07-28 11:11 | disposition home or self-care (01) ==
PROVIDERS: Emergency Provider Emergency Medicine; PCP Electrodiagnostic Medicine
DX: R07.9 Chest pain, unspecified (principal)
CPT/HCPCS: 36415; 71045; 80048; 83880; 84484; 85025; 93005; 96374; 99285; J3490

== ENCOUNTER 2023-08-15 14:30 | Outpatient (CLI) | payer OTHER, SELFPAY | END 2023-08-15 14:31 | disposition home or self-care (01) | LOC: SLEEP 08-16 09:39 | PROVIDERS: PCP Electrodiagnostic Medicine; Visit Provider Electrodiagnostic Medicine | DX: G47.10 Hypersomnia, unspecified (principal) | CPT/HCPCS: G0399 ==